=== PATIENT | female | born 1985 | race Caucasian/White ===

== ENCOUNTER 2023-02-02 21:12 | Emergency (ER) | payer BC ==
[2023-02-02 21:19] VITALS: BP 135/95; PULSE 77; RESP 18; TEMP 98.1; BMI 35.6
[2023-02-02] MEDS ORDERED: morphine CARPU-JECT 4 MG/1 ML DISP.SYRIN IVPUSH ONE (22:42)
[2023-02-02] MEDS ORDERED: ONDANSETRON 4 MG/2 ML VIAL IVPUSH ONE (22:43)
[2023-02-02] MEDS ORDERED: SODIUM CHLORIDE 0.9% 500 ML INFUS.BAG IV ONE (22:43)
[2023-02-02] MEDS ORDERED: ONDANSETRON 4 MG/2 ML VIAL ONE (22:44)
[2023-02-02] MEDS ORDERED: morphine SULFATE 4 MG/ML VIAL ONE (22:44)
[2023-02-02] MEDS ORDERED: BACITRACIN 0.9 GM PACKET TP ONE (22:56)
[2023-02-02] MEDS ORDERED: BACITRACIN ZINC 15 GM TUBE TOPICAL OINTMENT ONE (23:04)
== END 2023-02-03 00:19 | disposition home or self-care (01) ==
LOC: JER 21:12
PROC: 3E033GC Introduction of Other Therapeutic Substance into Peripheral Vein, Percutaneous Approach (ICD-10-PCS; principal; 2023-02-02)
PROC: 3E033GC Introduction of Other Therapeutic Substance into Peripheral Vein, Percutaneous Approach (ICD-10-PCS; 2023-02-02)
DX: T25.222A Burn of second degree of left foot, initial encounter (principal); X11.0XXA Contact with hot water in bath or tub, initial encounter; Y93.9 Activity, unspecified; Y92.9 Unspecified place or not applicable
CPT/HCPCS: 99284-25